=== PATIENT | male | born 1935 | race Caucasian/White ===

== ENCOUNTER 2016-09-29 07:25 | Day surgery (SDC) | payer MEDICARE, BC ==
[~2016-09-29] VITALS: Ht 180.3 cm; Wt 73.3 kg
[~2016-09-29 07:25] MED LIST: ACCUPRIL20TAB PO; ACCUPRIL40 MG PO; ACCUPRIL40MGTAB PO; AMBIEN 5MG TABLE5 MG PO; ASPIR-LOW81 MG PO; CENTRUM SILVER1 TA1 PO; CHONDROITIN PO; CLOPIDOGREL PO; GLUCOSAMINE PO; HYDROXINE PO; LEVITRA5 MG PO; NORFLEX 10100 MG/TAB PO; OMEGA-3 1000 MG1 CAP PO; PRAVACHOL 20MG20 MG PO; PRIL40 PO; SINGULAIR 110 MG/TAB PO; SINGULAIR PO; TOPROL PO; TOPROL XL 50MG50 MG PO; VITAMIN D 400400 IU PO; ZYRTEC 10MG10 MG PO
[2016-09-29 08:17] VITALS: BP 141/84; PULSE 60; TEMP 98.2
[2016-09-29] MEDS ORDERED: TOPROL XL 25MG25 MG PO (08:25)
[2016-09-29] MEDS ORDERED: MULTI VITAMINS1 TAB PO (08:27)
[2016-09-29 09:25] VITALS: BP 107/68; PULSE 60; TEMP 97.6
[2016-09-29 09:40] VITALS: BP 105/63; PULSE 54
[2016-09-29 09:55] VITALS: BP 109/57; PULSE 61
[2016-09-29 10:10] VITALS: BP 111/68; PULSE 57
[2016-09-29 10:30] VITALS: BP 116/63; PULSE 61
== END 2016-09-29 10:45 | disposition home or self-care (01) ==
LOC: SDCO 07:25
DX: Z86.010 Personal history of colon polyps (principal); K57.30 Diverticulosis of large intestine without perforation or abscess without bleeding; K64.0 First degree hemorrhoids; I25.10 Atherosclerotic heart disease of native coronary artery without angina pectoris; K21.9 Gastro-esophageal reflux disease without esophagitis; Z95.5 Presence of coronary angioplasty implant and graft; Z95.810 Presence of automatic (implantable) cardiac defibrillator; Z95.0 Presence of cardiac pacemaker; Z96.659 Presence of unspecified artificial knee joint
CPT/HCPCS: OP; J2250; J2405; J3010; J7030

== ENCOUNTER 2016-11-11 13:00 | Outpatient (RCR) | payer MEDICARE, BC ==
[~2016-11-11 13:00] MED LIST changes: +MULTI VITAMINS1 TAB PO; +TOPROL XL 25MG25 MG PO
== END 2016-11-13 13:03 | disposition still patient (30) ==
LOC: WSPT 13:00
DX: M25.551 Pain in right hip (principal); M79.662 Pain in left lower leg; M79.661 Pain in right lower leg
CPT/HCPCS: G8978-GP; G8979-GP; G8980-GP

== ENCOUNTER 2017-03-19 03:03 | Emergency (ER) | payer MEDICARE, BC ==
[~2017-03-19] VITALS: Ht 177.8 cm; Wt 72.7 kg
[2017-03-19 03:06] VITALS: BP 121/60; TEMP 97.8
[2017-03-19] MEDS ORDERED: VITAMIN D3400 I1 PO (03:15)
[2017-03-19] MEDS ORDERED: LEVITRA10 MG PO (03:15)
[2017-03-19] MEDS ORDERED: PRIL40 PO (03:16)
[2017-03-19] MEDS ORDERED: NORCO 325 MG-51 TAB PO (04:21)
[2017-03-19 05:09] VITALS: PULSE 67
== END 2017-03-19 05:09 | disposition home or self-care (01) ==
LOC: COL.ER 03:03
DX: S49.92XA Unspecified injury of left shoulder and upper arm, initial encounter (principal); Z79.02 Long term (current) use of antithrombotics/antiplatelets; Z79.82 Long term (current) use of aspirin; W01.0XXA Fall on same level from slipping, tripping and stumbling without subsequent striking against object, initial encounter; Y92.009 Unspecified place in unspecified non-institutional (private) residence as the place of occurrence of the external cause

== ENCOUNTER 2017-08-11 22:09 | Inpatient (IN) | payer MEDICARE, BC ==
[~2017-08-11] VITALS: Ht 177.8 cm; Wt 73.0 kg
[~2017-08-11 22:09] MED LIST changes: +LEVITRA10 MG PO; +NORCO 325 MG-51 TAB PO; +VITAMIN D3400 I1 PO
[2017-08-11 22:36] LABS: BASO # 0.1 (0.0-0.2); BASO % 0.8 % (0.0-2.0); EOS % 0.4 % (0-4.0); GRAN # 7.5 (1.4-6.5); GRAN % 78.4 % (42.2-75.2); HEMATOCRIT 50.2 % (42.0-52.0); HEMOGLOBIN 17.7 g/dl (13.5-18.0); LYMPH # 0.8 (1.2-3.4); LYMPH % 8.3 % (20.0-51.0); MEAN CELL VOLUME 94 fl (80.0-100.0); MEAN CORPUSCULAR HEMOGLOBIN 33 pg (27.0-31.0); MEAN CORPUSCULAR HGB CONC 35 g/dl (33.0-37.0); MONO # 1.1 (0.1-0.6); MONO % 11.8 % (1.7-9.3); PLATELET COUNT 136 K/mm3 (130-400); RED BLOOD COUNT 5.36 M/mm3 (4.20-5.60); REDCELL DISTRIBUTION WIDTH-CV 11.9 % (11.5-14.5)
[2017-08-11 22:45] LABS: ALBUMIN 5.1 gm/dL (3.5-5.0); BILIRUBIN,TOTAL 1.3 mg/dL (0.0-1.0); C-REACTIVE PROTEIN 4.3 mg/dL (0.0-0.9); CALCIUM 9.8 mg/dL (8.4-10.2); CREATININE, serum 1.44 mg/dL (0.66-1.25); POTASSIUM 4.2 mmol/L (3.4-5.0); TOTAL PROTEIN 10.3 gm/dL (6.4-8.2)
[2017-08-11 22:54] LABS: TROPONIN-I 0.015 ng/mL (0.000-0.034)
[2017-08-11 23:04] LABS: COLLECTION METHOD CLEAN CATCH
[2017-08-11 23:09] LABS: PH 5 (5-8); SQUAMOUS EPITHELIAL 0-2 /hpf; URINE APPEARANCE Clear; URINE BACTERIA None Seen /hpf; URINE BILIRUBIN Negative (NEGATIVE); URINE BLOOD Negative (NEGATIVE); URINE COLOR Yellow; URINE GLUCOSE Negative (NEGATIVE); URINE KETONE Trace (NEGATIVE); URINE LEUKOCYTE ESTERASE Negative (NEGATIVE); URINE NITRATE Negative (NEGATIVE); URINE PROTEIN(semi-quant) Negative (NEGATIVE); URINE RBC 0-2 /hpf; URINE UROBILINOGEN Negative (NEGATIVE)
[2017-08-11] MEDS ORDERED: ATIVAN 0.50.5 MG/TAB PO (23:56)
[2017-08-11] MEDS ORDERED: MELATONIN5 M1 SL (23:56)
[2017-08-11] MEDS ORDERED: CELEBREX 200MG200 MG PO (23:57)
[2017-08-12] MEDS ORDERED: APAP/CODEINE (00:24)
[2017-08-12 00:53] VITALS: BP 127/79; PULSE 86; TEMP 98.2
[2017-08-12 04:01] VITALS: BP 135/53; PULSE 71; TEMP 97.3
[2017-08-12 04:47] LABS: BASO % 0.4 % (0.0-2.0); EOS % 0.2 % (0-4.0); GRAN # 7.2 (1.4-6.5); GRAN % 80.3 % (42.2-75.2); HEMATOCRIT 44.1 % (42.0-52.0); LYMPH # 0.7 (1.2-3.4); LYMPH % 8.1 % (20.0-51.0); MEAN CELL VOLUME 94 fl (80.0-100.0); MEAN CORPUSCULAR HEMOGLOBIN 33 pg (27.0-31.0); MEAN CORPUSCULAR HGB CONC 35 g/dl (33.0-37.0); MONO % 10.6 % (1.7-9.3); PLATELET COUNT 119 K/mm3 (130-400); RED BLOOD COUNT 4.68 M/mm3 (4.20-5.60)
[2017-08-12 04:49] LABS: HEMOGLOBIN 15.4 g/dl (13.5-18.0)
[2017-08-12 04:57] LABS: CALCIUM 8.4 mg/dL (8.4-10.2); CREATININE, serum 1.3 mg/dL (0.66-1.25); POTASSIUM 4.4 mmol/L (3.4-5.0)
[2017-08-12 05:10] LABS: TROPONIN-I 6 HR POST INITIAL 0.042 ng/mL (0.000-0.034)
[2017-08-12 08:23] VITALS: BP 118/50; PULSE 71; TEMP 99.9
[2017-08-12 11:52] VITALS: BP 101/50; PULSE 63; TEMP 98.3
[2017-08-12 16:53] VITALS: BP 98/49; PULSE 66; TEMP 98.4
[2017-08-12 19:31] VITALS: BP 95/42; PULSE 74; TEMP 98.9
[2017-08-13] VITALS (13 sets, daily range): BP systolic 97–131; BP diastolic 46–80; PULSE 55–101; TEMP 97.5–98.9
[2017-08-13 06:59] LABS: BASO % 0.7 % (0.0-2.0); EOS # 0.3 (0.0-0.7); EOS % 4.2 % (0-4.0); GRAN % 66.2 % (42.2-75.2); HEMATOCRIT 37.1 % (42.0-52.0); LYMPH # 0.8 (1.2-3.4); LYMPH % 12.9 % (20.0-51.0); MEAN CELL VOLUME 97 fl (80.0-100.0); MEAN CORPUSCULAR HEMOGLOBIN 33 pg (27.0-31.0); MEAN CORPUSCULAR HGB CONC 34 g/dl (33.0-37.0); MEAN PLATELET VOLUME 10.3 fl (7.4-10.4); MONO # 0.9 (0.1-0.6); MONO % 15.7 % (1.7-9.3); PLATELET COUNT 92 K/mm3 (130-400); RED BLOOD COUNT 3.84 M/mm3 (4.20-5.60); REDCELL DISTRIBUTION WIDTH-CV 12.2 % (11.5-14.5)
[2017-08-13 07:11] LABS: HEMOGLOBIN 12.7 g/dl (13.5-18.0)
[2017-08-13 07:23] LABS: CREATININE, serum 1.29 mg/dL (0.66-1.25); POTASSIUM 3.8 mmol/L (3.4-5.0)
[2017-08-14 04:16] VITALS: BP 119/61; PULSE 57; TEMP 97.8
[2017-08-14 07:32] VITALS: BP 110/49; PULSE 52; TEMP 97.6
[2017-08-14 08:18] LABS: BASO % 0.9 % (0.0-2.0); EOS # 0.3 (0.0-0.7); EOS % 7.3 % (0-4.0); HEMATOCRIT 39.1 % (42.0-52.0); HEMOGLOBIN 13.7 g/dl (13.5-18.0); LYMPH # 0.7 (1.2-3.4); LYMPH % 14.1 % (20.0-51.0); MEAN CELL VOLUME 94 fl (80.0-100.0); MEAN CORPUSCULAR HEMOGLOBIN 33 pg (27.0-31.0); MEAN CORPUSCULAR HGB CONC 35 g/dl (33.0-37.0); MEAN PLATELET VOLUME 10.2 fl (7.4-10.4); MONO # 0.7 (0.1-0.6); MONO % 14.3 % (1.7-9.3); PLATELET COUNT 115 K/mm3 (130-400); RED BLOOD COUNT 4.14 M/mm3 (4.20-5.60); REDCELL DISTRIBUTION WIDTH-CV 11.9 % (11.5-14.5)
[2017-08-14 08:26] LABS: CALCIUM 8.7 mg/dL (8.4-10.2); CREATININE, serum 1.24 mg/dL (0.66-1.25); POTASSIUM 4.4 mmol/L (3.4-5.0)
[2017-08-14 11:17] LABS: MYCOPLASMA IGM ANTIBODIES 0.19 (0.00-0.90)
== END 2017-08-14 12:00 | disposition home or self-care (01) | DRG 152 ==
LOC: COL.ER 22:09 → MEDICAL 23:48
PROVIDERS: Emergency Medicine; Nurse Practitioner; Physician Assistant
DX: J02.0 Streptococcal pharyngitis (principal); J18.9 Pneumonia, unspecified organism; I13.0 Hypertensive heart and chronic kidney disease with heart failure and stage 1 through stage 4 chronic kidney disease, or unspecified chronic kidney disease; I50.22 Chronic systolic (congestive) heart failure; N17.9 Acute kidney failure, unspecified; E86.0 Dehydration; N18.2 Chronic kidney disease, stage 2 (mild); I25.10 Atherosclerotic heart disease of native coronary artery without angina pectoris; Z95.5 Presence of coronary angioplasty implant and graft; Z95.0 Presence of cardiac pacemaker; Z87.891 Personal history of nicotine dependence; J45.40 Moderate persistent asthma, uncomplicated; I25.5 Ischemic cardiomyopathy; E11.21 Type 2 diabetes mellitus with diabetic nephropathy
CPT/HCPCS: 99223-AI; 99232-AI; 99239; A9502; G0378; G8978-GP; G8979-GP; G8987-GO; G8988-GO; J0456; J0696; J1644; J2405; J7030; J7050

== ENCOUNTER 2017-11-03 08:29 | Outpatient (CLI) | payer MEDICARE, BC ==
[2017-11-03] VITALS (7 sets, daily range): BP systolic 122–138; BP diastolic 56–84; PULSE 16–96
[~2017-11-03] VITALS: Ht 177.8 cm; Wt 72.7 kg
[~2017-11-03 08:29] MED LIST changes: +APAP/CODEINE; +ATIVAN 0.50.5 MG/TAB PO; +CELEBREX 200MG200 MG PO; +FLONASEALLERGY; +MELATONIN5 M1 SL; +NATURAL POTASS595 MG PO
== END 2017-11-03 11:34 | disposition home or self-care (01) ==
LOC: COL.RAD 08:29
DX: M51.36 Other intervertebral disc degeneration, lumbar region (principal); M48.061 Spinal stenosis, lumbar region without neurogenic claudication; M96.1 Postlaminectomy syndrome, not elsewhere classified; M43.06 Spondylolysis, lumbar region
CPT/HCPCS: Q9965

== ENCOUNTER → 2018-02-03 | Outpatient (CLI) | payer MEDICARE, BC | LOC: MHCPAIN 15:04 | DX: G89.29 Other chronic pain (principal); M47.817 Spondylosis without myelopathy or radiculopathy, lumbosacral region; M54.16 Radiculopathy, lumbar region; M53.3 Sacrococcygeal disorders, not elsewhere classified; M96.1 Postlaminectomy syndrome, not elsewhere classified; M48.061 Spinal stenosis, lumbar region without neurogenic claudication | CPT/HCPCS: G0463 ==

== ENCOUNTER → 2018-02-18 | Outpatient (CLI) | payer MEDICARE, BC | LOC: MHCPAIN 13:10 | DX: M47.817 Spondylosis without myelopathy or radiculopathy, lumbosacral region (principal); M54.16 Radiculopathy, lumbar region | CPT/HCPCS: J1100; Q9967 ==

== ENCOUNTER → 2018-03-02 | Outpatient (CLI) | payer MEDICARE, BC | LOC: MHCPAIN 15:28 | DX: G89.29 Other chronic pain (principal); M47.817 Spondylosis without myelopathy or radiculopathy, lumbosacral region; M54.16 Radiculopathy, lumbar region; M53.3 Sacrococcygeal disorders, not elsewhere classified; M96.1 Postlaminectomy syndrome, not elsewhere classified; M48.061 Spinal stenosis, lumbar region without neurogenic claudication | CPT/HCPCS: G0463 ==

== ENCOUNTER 2018-04-02 08:15 | Outpatient (RCR) | payer MEDICARE, BC | END 2018-06-01 | disposition home or self-care (01) | LOC: MKS.ESL.PT | DX: S76.311D Strain of muscle, fascia and tendon of the posterior muscle group at thigh level, right thigh, subsequent encounter (principal) | CPT/HCPCS: G8978-GP; G8979-GP ==

== ENCOUNTER 2018-11-19 13:30 | Outpatient (RCR) | payer MEDICARE, BC | END 2019-01-20 | LOC: MKS.ESL.PT | DX: R29.898 Other symptoms and signs involving the musculoskeletal system (principal); Z98.1 Arthrodesis status ==

== ENCOUNTER 2019-01-24 14:48 | Emergency (ER) | payer MEDICARE, BC ==
[~2019-01-24] VITALS: Ht 177.8 cm; Wt 71.8 kg
[2019-01-24 14:52] VITALS: BP 124/69; TEMP 98.3
[2019-01-24 15:55] VITALS: PULSE 78
== END 2019-01-24 15:55 | disposition home or self-care (01) ==
LOC: COL.ER 14:48
DX: S93.602A Unspecified sprain of left foot, initial encounter (principal); I10 Essential (primary) hypertension; K21.9 Gastro-esophageal reflux disease without esophagitis; F17.210 Nicotine dependence, cigarettes, uncomplicated; Z79.82 Long term (current) use of aspirin; Z79.02 Long term (current) use of antithrombotics/antiplatelets; Z79.51 Long term (current) use of inhaled steroids; X50.1XXA Overexertion from prolonged static or awkward postures, initial encounter; Y92.838 Other recreation area as the place of occurrence of the external cause

== ENCOUNTER → 2020-08-30 | Outpatient (CLI) | payer MEDICARE, BC ==
[~2020-08-30] MED LIST changes: +ACCUPRIL10 M1 PO; +ASPIRIN E.C. 8181 MG PO; +BRAIN BOOSTER PO; +CALCIUM 600-D 61 TAB PO; +DIFLUCAN 10M10 MG/ML PO; +KLONOPIN WAFE0.25 MG PO; +PRILOSEC 20MG20 MG PO; +[UNRECOGNIZED DRUG - OTHER] PO
== END ==
LOC: COL.RAD 13:50
DX: E04.1 Nontoxic single thyroid nodule (principal)

== ENCOUNTER 2020-10-03 15:04 | Emergency (ER) | payer MEDICARE, BC ==
[~2020-10-03] VITALS: Ht 177.8 cm; Wt 65.5 kg
[~2020-10-03 15:04] MED LIST changes: -ACCUPRIL10 M1 PO; -ASPIRIN E.C. 8181 MG PO; -BRAIN BOOSTER PO; -CALCIUM 600-D 61 TAB PO; -DIFLUCAN 10M10 MG/ML PO; -KLONOPIN WAFE0.25 MG PO; -PRILOSEC 20MG20 MG PO; -[UNRECOGNIZED DRUG - OTHER] PO
[2020-10-03 15:20] VITALS: TEMP 97.7
[2020-10-03 16:30] LABS: BASO # 0.1 (0.0-0.2); BASO % 1.1 % (0.0-2.0); EOS # 0.1 (0.0-0.7); EOS % 1.3 % (0-4.0); GRAN % 75.3 % (42.2-75.2); HEMATOCRIT 40.4 % (42.0-52.0); HEMOGLOBIN 14.2 g/dl (13.5-18.0); LYMPH # 0.7 (1.2-3.4); MEAN CELL VOLUME 92 fl (80.0-100.0); MEAN CORPUSCULAR HEMOGLOBIN 32 pg (27.0-31.0); MEAN CORPUSCULAR HGB CONC 35 g/dl (33.0-37.0); MEAN PLATELET VOLUME 10.4 fl (7.4-10.4); MONO # 0.5 (0.1-0.6); MONO % 8.9 % (1.7-9.3); PLATELET COUNT 143 K/mm3 (130-400); RED BLOOD COUNT 4.41 M/mm3 (4.20-5.60)
[2020-10-03 16:45] LABS: BLOOD UREA NITROGEN 32 mg/dL (9-20); GLUCOSE 133 mg/dL (74-106)
[2020-10-03 16:46] LABS: CALCIUM 9.9 mg/dL (8.4-10.2); CARBON DIOXIDE 25 mmol/L (22-30); CHLORIDE 99 mmol/L (98-107); CREATININE, serum 1.04 (0.66-1.25); POTASSIUM 4.4 mmol/L (3.4-5.0); SODIUM 129 mmol/L (137-145)
[2020-10-03 16:47] LABS: ALBUMIN 4.2 gm/dL (3.5-5.0); BILIRUBIN,TOTAL 0.7 mg/dL (0.0-1.0); TOTAL PROTEIN 7.2 gm/dL (6.4-8.2)
[2020-10-03 16:48] LABS: ALANINE AMINOTRANSFERASE 24 U/L (4-49); ALKALINE PHOSPHATASE 64 U/L (50-136); ANION GAP 5 mmol/L (7-16); AST,SGOT 37 U/L (15-37)
[2020-10-03 16:57] LABS: ACETAMINOPHEN < 10 ug/mL (10-30); ALCOHOL(ethanol),MEDICAL < 10 mg/dL; SALICYLATE < 1.0 mg/dL
[2020-10-03 16:58] LABS: COLLECTION METHOD CLEAN CATCH
[2020-10-03 17:07] LABS: PH 7 (5-8); SQUAMOUS EPITHELIAL None Seen /hpf; URINE APPEARANCE Clear; URINE BACTERIA None Seen /hpf; URINE BILIRUBIN Negative (NEGATIVE); URINE BLOOD Negative (NEGATIVE); URINE COLOR Yellow; URINE GLUCOSE Negative (NEGATIVE); URINE KETONE Trace (NEGATIVE); URINE LEUKOCYTE ESTERASE Negative (NEGATIVE); URINE NITRATE Negative (NEGATIVE); URINE PROTEIN(semi-quant) Negative (NEGATIVE); URINE RBC 0-2 /hpf; URINE UROBILINOGEN Negative (NEGATIVE); URINE WBC 0-2 /hpf
[2020-10-03 17:18] LABS: TRICYCLIC ANTIDEPRESS URINE NEGATIVE
[2020-10-03] MEDS ORDERED: KLONOPIN WAFE0.25 MG PO (18:20)
[2020-10-03 19:46] VITALS: BP 124/69; PULSE 72
== END 2020-10-03 19:50 | disposition home or self-care (01) ==
LOC: COL.ER 15:04
PROVIDERS: Nurse Practitioner Primary Care
DX: F41.9 Anxiety disorder, unspecified (principal); F32.9 Major depressive disorder, single episode, unspecified; I10 Essential (primary) hypertension; G47.00 Insomnia, unspecified; K21.9 Gastro-esophageal reflux disease without esophagitis; E78.5 Hyperlipidemia, unspecified; Z87.891 Personal history of nicotine dependence; Z79.02 Long term (current) use of antithrombotics/antiplatelets; Z79.899 Other long term (current) drug therapy

== ENCOUNTER 2021-03-11 10:04 | Day surgery (SDC) | payer MEDICARE, BC ==
[~2021-03-11] VITALS: Ht 177.8 cm; Wt 67.3 kg
[~2021-03-11 10:04] MED LIST changes: +KLONOPIN WAFE0.25 MG PO
[2021-03-11] MEDS ORDERED: ASPIRIN E.C. 8181 MG PO (11:00)
[2021-03-11] MEDS ORDERED: DIFLUCAN 10M10 MG/ML PO (11:01)
[2021-03-11] MEDS ORDERED: MELATONIN5 M1 SL ×2 (11:01→11:02)
[2021-03-11] MEDS ORDERED: SINGULAIR 110 MG/TAB PO (11:02)
[2021-03-11] MEDS ORDERED: PRILOSEC 20MG20 MG PO (11:03)
[2021-03-11] MEDS ORDERED: PRAVACHOL 20MG20 MG PO (11:04)
[2021-03-11] MEDS ORDERED: ACCUPRIL10 M1 PO (11:05)
[2021-03-11] MEDS ORDERED: CALCIUM 600-D 61 TAB PO (11:05)
[2021-03-11] MEDS ORDERED: BRAIN BOOSTER PO (11:07)
[2021-03-11] MEDS ORDERED: [UNRECOGNIZED DRUG - OTHER] PO (11:08)
[2021-03-11 11:30] VITALS: BP 127/69; PULSE 66; TEMP 97.1
--- NOTE | 2021-03-11 12:00 | NUR ---
First and last name + verifed with patient and compared to wirst band.
--- NOTE | 2021-03-11 12:11 | NUR ---
Patient ambulated back to bay #5 without difficulty and no use of assistive devices. Medications and HX reviewed with patient. Consent was reviewed and patient verbalized understanding of procedure. Consent was signed. Vitals obtained. Patient voided in bathroom and changed into patient gown. IV was started in L FA with #20 on first attempt. LR is infusing without difficulty. IV Pepcid administered at this time. Warm blanket provided. Non-slip socks are on. Side rails x2. Patient is reading in bed while waiting for procedure to start. Will continue to monitor.
--- NOTE | 2021-03-11 12:39 | NUR ---
Patient was taken to the OR at this time.
[2021-03-11] MEDS ORDERED: NORCO 325 MG-51 TAB PO (13:47)
[2021-03-11 13:50] VITALS: BP 90/44; BP 99/44; PULSE 57; TEMP 97; TEMP 97.7
--- NOTE | 2021-03-11 13:50 | NUR ---
Patient arrived on cart from OR, escorted by BREANA Fowler. Patient is sleepy, but arouses to his name and to answer simple questions. Oriented to time and place. Vitals obtained. Report recieved. Side rails x2 and call fernandez is at bedside. Will continue to monitor.
[2021-03-11 14:10] VITALS: BP 101/66; PULSE 58
--- NOTE | 2021-03-11 14:10 | NUR ---
Patient is awake and oriented x3. He requested ice water and buttered toast. Vitals obtained. Will continue to monitor. Call fernandez is at bedside. Side rails x2.
--- NOTE | 2021-03-11 14:21 | NUR ---
Patient is tolerating buttered toast and ice water well. He requested another piece of toast and a refill on ice water. He states feeling "much more awake and better." Vitals obtained. Patient requested RN to call friend, who is driving him home. Will continue to monitor.
--- NOTE | 2021-03-11 14:25 | NUR ---
Vitals obtained. IV discontinued. Catheter tip intact. Pressure bandage applied. Will continue to monitor. Patient expressed desire to be discharged.
[2021-03-11 14:40] VITALS: BP 110/55; PULSE 55
--- NOTE | 2021-03-11 14:40 | NUR ---
Patient was assisted with ambulating to bathroom, and was able to void successfully. Patient is currently changing into her personal clothes. Friend (ride) is in the waiting room. Patient refused assistance changing.
--- NOTE | 2021-03-11 15:08 | NUR ---
Patient was escroted out to [facility] by BREANA Sims and his friend Zbigniew via wheelchair. Patient has his discharge instructions. Instructions were reviewed prior to discharge. Patient verbalized understanding and currently has no further questions or concerns. Patient was transferred into the care of his friend Zbigniew, who is driving.
== END 2021-03-11 15:05 | disposition home or self-care (01) ==
LOC: SDCO 10:04
DX: K40.90 Unilateral inguinal hernia, without obstruction or gangrene, not specified as recurrent (principal); I42.9 Cardiomyopathy, unspecified; E78.5 Hyperlipidemia, unspecified; I13.0 Hypertensive heart and chronic kidney disease with heart failure and stage 1 through stage 4 chronic kidney disease, or unspecified chronic kidney disease; I50.20 Unspecified systolic (congestive) heart failure; E11.22 Type 2 diabetes mellitus with diabetic chronic kidney disease; E11.21 Type 2 diabetes mellitus with diabetic nephropathy; N18.30 Chronic kidney disease, stage 3 unspecified; G47.33 Obstructive sleep apnea (adult) (pediatric); J45.909 Unspecified asthma, uncomplicated; I25.10 Atherosclerotic heart disease of native coronary artery without angina pectoris; I87.2 Venous insufficiency (chronic) (peripheral); K21.9 Gastro-esophageal reflux disease without esophagitis; I25.2 Old myocardial infarction; M19.90 Unspecified osteoarthritis, unspecified site; F41.9 Anxiety disorder, unspecified; F03.90 Unspecified dementia, unspecified severity, without behavioral disturbance, psychotic disturbance, mood disturbance, and anxiety; Z79.899 Other long term (current) drug therapy; Z79.82 Long term (current) use of aspirin; Z99.89 Dependence on other enabling machines and devices; Z87.891 Personal history of nicotine dependence; Z79.01 Long term (current) use of anticoagulants
CPT/HCPCS: C1781; J7120

== ENCOUNTER 2021-07-13 15:56 | Emergency (ER) | payer MEDICARE, BC ==
[~2021-07-13] VITALS: Ht 177.8 cm; Wt 66.4 kg
[~2021-07-13 15:56] MED LIST changes: +ACCUPRIL10 M1 PO; +ASPIRIN E.C. 8181 MG PO; +BRAIN BOOSTER PO; +CALCIUM 600-D 61 TAB PO; +DIFLUCAN 10M10 MG/ML PO; +PRILOSEC 20MG20 MG PO; +[UNRECOGNIZED DRUG - OTHER] PO
[2021-07-13 16:10] VITALS: TEMP 98.1
[2021-07-13] MEDS ORDERED: ROBAXIN 50500 MG/TAB PO (18:09)
[2021-07-13] MEDS ORDERED: NAPROSYN 2250 MG/TAB PO (18:09)
[2021-07-13 18:28] VITALS: BP 182/105; PULSE 78
== END 2021-07-13 18:28 | disposition home or self-care (01) ==
LOC: COL.ER 15:56
DX: S70.02XA Contusion of left hip, initial encounter (principal); M25.511 Pain in right shoulder; X50.1XXA Overexertion from prolonged static or awkward postures, initial encounter; W18.30XA Fall on same level, unspecified, initial encounter; Y93.01 Activity, walking, marching and hiking

== ENCOUNTER → 2021-09-02 | Outpatient (CLI) | payer MEDICARE, BC ==
[~2021-09-02] MED LIST changes: +NAPROSYN 2250 MG/TAB PO; +ROBAXIN 50500 MG/TAB PO
== END ==
LOC: COL.RAD 13:26
DX: M75.121 Complete rotator cuff tear or rupture of right shoulder, not specified as traumatic (principal)
CPT/HCPCS: Q9967

== ENCOUNTER 2021-11-27 17:50 | Emergency (ER) | payer MEDICARE, BC ==
[~2021-11-27] VITALS: Ht 177.8 cm; Wt 65.9 kg
[2021-11-27 17:58] VITALS: TEMP 97.9
[2021-11-27 18:39] LABS: HEMATOCRIT 40.5 % (42.0-52.0); HEMOGLOBIN 14.1 g/dl (13.5-18.0); MEAN CELL VOLUME 92 fl (80.0-100.0); MEAN CORPUSCULAR HEMOGLOBIN 32 pg (27-31); MEAN CORPUSCULAR HGB CONC 35 g/dl (33.0-37.0); MEAN PLATELET VOLUME 10.6 fl (7.4-10.4); PLATELET COUNT 132 K/mm3 (130-400); RED BLOOD COUNT 4.41 M/mm3 (4.20-5.60); REDCELL DISTRIBUTION WIDTH-CV 12.2 % (11.5-14.5)
[2021-11-27 18:46] LABS: INR 1.2 (0.8-3.0); PROTHROMBIN TIME 13.3 SECONDS (9.7-12.8)
[2021-11-27 18:48] LABS: PARTIAL THROMBOPLASTIN TIME 32.1 SECONDS (26.0-37.0)
[2021-11-27 20:25] VITALS: BP 123/74; PULSE 86
== END 2021-11-27 20:25 | disposition home or self-care (01) ==
LOC: COL.ER 17:50
PROVIDERS: Emergency Medicine
DX: K05.00 Acute gingivitis, plaque induced (principal); Z79.01 Long term (current) use of anticoagulants; Z28.310 Unvaccinated for COVID-19

== ENCOUNTER 2022-07-20 12:53 | Emergency (ER) | payer MEDICARE, BC ==
[~2022-07-20] VITALS: Ht 177.8 cm; Wt 62.7 kg
[2022-07-20 13:19] LABS: HEMOGLOBIN 12.5 g/dl (13.5-18.0); MEAN CELL VOLUME 92 fl (80.0-100.0); MEAN CORPUSCULAR HEMOGLOBIN 33 pg (27-31); MEAN CORPUSCULAR HGB CONC 36 g/dl (33.0-37.0); MEAN PLATELET VOLUME 11.1 fl (7.4-10.4); PLATELET COUNT 82 K/mm3 (130-400); RED BLOOD COUNT 3.79 M/mm3 (4.20-5.60)
[2022-07-20 13:30] LABS: HEMATOCRIT 34.9 % (42.0-52.0)
[2022-07-20 13:36] LABS: ALBUMIN 3.5 gm/dL (3.4-4.8); BILIRUBIN,TOTAL 0.9 mg/dL (0.2-1.2); CALCIUM 8.5 mg/dL (8.4-10.2); CREATININE, serum 1.44 mg/dL (0.72-1.25); POTASSIUM 4.2 mmol/L (3.5-4.5); TOTAL PROTEIN 6.6 gm/dL (6.2-8.1)
[2022-07-20 13:43] LABS: COLLECTION METHOD CLEAN CATCH
[2022-07-20 13:51] LABS: MUCOUS Present (NOT PRESENT); SQUAMOUS EPITHELIAL 0-2 /hpf (0-10); URINE APPEARANCE Clear (CLEAR/HAZY); URINE BACTERIA None Seen /hpf (NONE SEEN); URINE BLOOD TRACE-LYSED (NEGATIVE); URINE COLOR Yellow (YELLOW); URINE GLUCOSE Negative (NEGATIVE); URINE KETONE TRACE (NEGATIVE); URINE NITRATE Negative (NEGATIVE); URINE PROTEIN(semi-quant) 1+ (NEGATIVE); URINE RBC 0-2 /hpf (0-2); URINE UROBILINOGEN 0.2 E.U/dL (0.2-1.0)
[2022-07-20 13:56] LABS: BAND 11 % (0-10); LYMPHOCYTE 34 % (20.0-51.0); NEUTROPHILS 42 % (42.0-75.2); PLATELET ESTIMATE DECREASED (NORMAL)
--- NOTE | 2022-07-20 15:17 | NUR ---
DANAY recieved a phone call from ER to visit with a patient who has been falling alot the last couple months. Pt lives at [facility]. Pt reports he had been active and working out 4x a week and then the last few months he has been falling alot. Pt reports falling 2x today. Pt feels he could use rehab, but he will be speaking with PCP about his will be speaking with his PCP about his blood pressure tomorrow at 10 am. DNAAY updated BREANA Ortiz in ER. Pt agreed for DANAY to send referral. SW to send a referral to [facility] and have CM team reach out to them on Friday 07/21. No other needs at this time. SW to await for further recommendations and follow up as needed.
[2022-07-20 16:20] VITALS: BP 122/68; PULSE 67; TEMP 98.4
== END 2022-07-20 16:20 | disposition home or self-care (01) ==
LOC: COL.ER 12:53
PROVIDERS: Nurse Practitioner
DX: S00.531A Contusion of lip, initial encounter (principal); S00.83XA Contusion of other part of head, initial encounter; W18.30XA Fall on same level, unspecified, initial encounter; W22.03XA Walked into furniture, initial encounter; Y92.009 Unspecified place in unspecified non-institutional (private) residence as the place of occurrence of the external cause